=== PATIENT | male | born 1985 | race Two or more races ===

== ENCOUNTER 2023-11-08 17:06 | Emergency (ER) | payer OTHER ==
[2023-11-08 17:15] VITALS: BP 140/88; PULSE 74; RESP 18; TEMP 98; BMI 28.1
[2023-11-08] MEDS ORDERED: KETOROLAC TROMETHAMINE 30 MG/1 ML VIAL IM ONE (17:29)
[2023-11-08] MEDS ORDERED: KETOROLAC TROMETHAMINE 30 MG/1 ML VIAL ONE (17:32)
== END 2023-11-08 18:26 | disposition home or self-care (01) ==
LOC: JERFT 17:06
PROC: 3E0233Z Introduction of Anti-inflammatory into Muscle, Percutaneous Approach (ICD-10-PCS; principal; 2023-11-08)
DX: M25.511 Pain in right shoulder (principal); M79.675 Pain in left toe(s)
CPT/HCPCS: 73030-TC-RT-FY; 73630-TC-LT; 99284-25

== ENCOUNTER 2023-11-15 23:44 | Emergency (ER) | payer OTHER ==
[2023-11-15 23:52] VITALS: BP 128/90; PULSE 75; RESP 18; TEMP 98.2; BMI 28.1
[2023-11-16] MEDS ORDERED: KETOROLAC TROMETHAMINE 30 MG/1 ML VIAL ONE (00:48)
[2023-11-16] MEDS: KETOROLAC TROMETHAMINE 30 MG/1 ML VIAL IM ONE (00:52)
== END 2023-11-16 00:52 | disposition home or self-care (01) ==
LOC: JER 23:44
PROC: 3E0233Z Introduction of Anti-inflammatory into Muscle, Percutaneous Approach (ICD-10-PCS; principal; 2023-11-16)
DX: R05.9 Cough, unspecified (principal); J34.89 Other specified disorders of nose and nasal sinuses; R09.81 Nasal congestion; M79.10 Myalgia, unspecified site; R11.10 Vomiting, unspecified; R50.9 Fever, unspecified; J10.1 Influenza due to other identified influenza virus with other respiratory manifestations; Z20.822 Contact with and (suspected) exposure to COVID-19
CPT/HCPCS: 0241U-QW; 99284-25